=== PATIENT | female | born 1980 | race Caucasian/White ===

== ENCOUNTER 2018-02-11 09:09 | Emergency (ER) | payer BC, MEDICAID ==
[~2018-02-11] VITALS: Ht 175.3 cm; Wt 104.3 kg
[2018-02-11 09:16] VITALS: BP_SYST 143
[2018-02-11] MEDS ORDERED: NACL 0.9% 1,000 ML IV ONE (09:24)
[2018-02-11] MEDS ORDERED: ONDANSETRON HCL 4 MG/2 ML VIAL IVP ONE (09:30)
[2018-02-11 09:56] LABS: EOSINOPHILS # (AUTO) 0.1 K/uL (0.0-0.4); MEAN CORPUSCULAR HEMOGLOBIN 29 pg (27-31); MONOCYTES # (AUTO) 0.2 K/uL (0.0-1.0); NEUTROPHILS # (AUTO) 4.1 K/uL (1.8-7.7); RED CELL DISTRIBUTION WIDTH 12.5 % (9.0-15.0); WHITE BLOOD COUNT (AUTO) 5.5 K/uL (4.8-10.8)
[2018-02-11 10:04] LABS: ANION GAP 7 (5-15); BASOPHILS % (AUTO) 0.7 % (0.0-2.0); CHLORIDE 106 mmol/L (98-107); CREATININE 0.61 mg/dL (0.55-1.30); EOSINOPHILS % (AUTO) 2.7 % (0.0-4.0); GLUCOSE 114 mg/dL (70-99); HEMATOCRIT 41.7 % (36-48); LYMPHOCYTES # (AUTO) 1.1 K/uL (1.0-5.5); LYMPHOCYTES % (AUTO) 19.2 % (20.5-51.5); MEAN CORPUSCULAR HGB CONC 34 % (32-36); MEAN CORPUSCULAR VOLUME 86 fL (79.0-98.0); MONOCYTES % (AUTO) 4.1 % (1.7-9.3); NEUTROPHILS % (AUTO) 73.3 % (40.0-70.0); PLATELET COUNT (AUTO) 284 K/uL (130-430); POTASSIUM 3.6 mmol/L (3.5-5.1); RED BLOOD CELL COUNT(AUTO) 4.87 MIL/uL (4.2-6.2); SODIUM SERUM 143 mmol/L (136-145); UREA NITROGEN, BLOOD 11 mg/dL (8-21)
[2018-02-11 10:06] LABS: GFR AFRICAN AMERICAN 141 mL/min (>90)
[2018-02-11 10:13] LABS: ALANINE AMINOTRANSFERASE 28 U/L (12-78); ALBUMIN 3.9 g/dL (3.4-4.8); ASPARTATE AMINOTRANSFERASE 17 U/L (10-37); LIPASE 145 U/L (73-393); TOTAL BILIRUBIN 0.3 mg/dL (0.0-1.0)
[2018-02-11] MEDS ORDERED: KETOROLAC TROMETHAMINE 30 MG VIAL IVP ONE (10:30)
[2018-02-11 10:42] LABS: BARBITURATE, URINE NEGATIVE (NEG <=200); BENZODIAZEPINE, URINE NEGATIVE (NEG <=150); CANNABINOID, URINE NEGATIVE (NEG <=50); COCAINE, URINE NEGATIVE (NEG <=150); METHAMPHETAMINES SCREEN,URINE NEGATIVE (NEG <=500); OPIATE, URINE NEGATIVE (NEG <=100); PHENCYCLIDINE SCREEN,URINE NEGATIVE (NEG <=25); UR TRICYCLIC ANTIDEPRESSANTS NEGATIVE (NEG <=300); URINE AMPHETAMINE NEGATIVE (NEG <=500); URINE METHADONE NEGATIVE (NEG <=200); URINE OXYCODONE SCREEN NEGATIVE (NEG <=100); URINE PROPOXYPHENE SCREEN NEGATIVE (NEG <=300)
[2018-02-11 13:57] VITALS: BP_SYST 135
== END 2018-02-11 13:57 | disposition home or self-care (01) ==
LOC: SED 09:09
DX: T62.8X1A Toxic effect of other specified noxious substances eaten as food, accidental (unintentional), initial encounter (principal); K52.1 Toxic gastroenteritis and colitis; F41.9 Anxiety disorder, unspecified; R03.0 Elevated blood-pressure reading, without diagnosis of hypertension; Z88.6 Allergy status to analgesic agent; Z88.5 Allergy status to narcotic agent; Z90.710 Acquired absence of both cervix and uterus; Y92.89 Other specified places as the place of occurrence of the external cause
CPT/HCPCS: 36415; 71045; 80053; 80307; 83690; 84484; 85025; 93005; 96361; 96374; 99285; J2405; J7030; J1885

== ENCOUNTER 2018-05-12 11:42 | Emergency (ER) | payer MEDICAID ==
[~2018-05-12] VITALS: Ht 170.2 cm; Wt 104.3 kg
[2018-05-12 11:45] VITALS: BP_SYST 155
--- NOTE | 2018-05-12 11:50 | NUR ---
Patient to ER bed 6 to gown for evaluation. Side rails up.
--- NOTE | 2018-05-12 11:55 | NUR ---
Pt bib 63 c/o SOB while at restuarant that worsened since yesterday.
[2018-05-12] MEDS ORDERED: NACL 0.9% 1,000 ML IV ONE (12:45)
[2018-05-12] MEDS ORDERED: ONDANSETRON HCL 4 MG/2 ML VIAL IVP ONE (12:45)
--- NOTE | 2018-05-12 12:45 | NUR ---
Pt medicated tolerated well.Continuing to monitor/.
[2018-05-12 13:06] LABS: BASOPHILS % (AUTO) 0.4 % (0.0-2.0); EOSINOPHILS % (AUTO) 0.1 % (0.0-4.0); HEMATOCRIT 43.2 % (36-48); HEMOGLOBIN 13.9 g/dL (12.0-16.0); LYMPHOCYTES # (AUTO) 0.8 K/uL (1.0-5.5); LYMPHOCYTES % (AUTO) 12.8 % (20.5-51.5); MEAN CORPUSCULAR HEMOGLOBIN 28 pg (27-31); MEAN CORPUSCULAR HGB CONC 32 % (32-36); MEAN CORPUSCULAR VOLUME 86 fL (79.0-98.0); MONOCYTES # (AUTO) 0.2 K/uL (0.0-1.0); MONOCYTES % (AUTO) 2.8 % (1.7-9.3); NEUTROPHILS # (AUTO) 5.5 K/uL (1.8-7.7); NEUTROPHILS % (AUTO) 83.9 % (40.0-70.0); PLATELET COUNT (AUTO) 348 K/uL (130-430); RED BLOOD CELL COUNT(AUTO) 5.01 MIL/uL (4.2-6.2); RED CELL DISTRIBUTION WIDTH 12.9 % (9.0-15.0); WHITE BLOOD COUNT (AUTO) 6.5 K/uL (4.8-10.8)
--- NOTE | 2018-05-12 13:15 | NUR ---
Pt sleeping easily aroused. no acute distress noted.
[2018-05-12 13:20] LABS: CALCIUM 9.5 mg/dL (8.4-11.0); CREATININE 0.54 mg/dL (0.55-1.30); POTASSIUM 3.9 mmol/L (3.5-5.1)
[2018-05-12 13:26] LABS: ALBUMIN 3.9 g/dL (3.4-4.8); TOTAL BILIRUBIN 0.5 mg/dL (0.0-1.0)
--- NOTE | 2018-05-12 14:30 | NUR ---
IVF infusing, pt needs continuous reminders to keep arm straight.
[2018-05-12] MEDS ORDERED: KETOROLAC TROMETHAMINE 30 MG VIAL IVP ONE (16:00)
--- NOTE | 2018-05-12 16:00 | NUR ---
Pt mediated for pain.
[2018-05-12 16:57] VITALS: BP_SYST 148
--- NOTE | 2018-05-12 16:57 | NUR ---
Patient given written and verbal discharge instructions and verbalizes understanding. ER MD discussed with patient the results and treatment provided. Patient in stable condition. ID arm band removed. IV catheter removed intact and dressing applied, no active bleeding. Rx of zofran,motrin given. Patient educated on pain management and to follow up with PMD. Pain Scale 2. Opportunity for questions provided and answered. Medication side effect fact sheet provided.
== END 2018-05-12 16:57 | disposition home or self-care (01) ==
LOC: SED 11:42
DX: R07.89 Other chest pain (principal); R06.02 Shortness of breath; R11.2 Nausea with vomiting, unspecified; R03.0 Elevated blood-pressure reading, without diagnosis of hypertension; Z88.5 Allergy status to narcotic agent; Z88.6 Allergy status to analgesic agent; Z86.79 Personal history of other diseases of the circulatory system; Z90.710 Acquired absence of both cervix and uterus
CPT/HCPCS: 36415; 80053; 85025; 93005; 96375; 96374; 99285; J1885; J2405; J7030; 99284

== ENCOUNTER 2019-01-25 22:26 | Emergency (ER) | payer MEDICAID ==
[~2019-01-25] VITALS: Ht 154.9 cm; Wt 113.4 kg
[2019-01-25 22:26] VITALS: BP_SYST 130
--- NOTE | 2019-01-25 22:26 | NUR ---
Pt BIB ALS and BLS, no available beds, placed to ER hallway. Pt on stretcher with BLS present. Pt in stable condition, NAD.
--- NOTE | 2019-01-25 22:45 | NUR ---
Pt placed to ER bed 07, to color sprayer. Pt report given to JENY Fernandez.
--- NOTE | 2019-01-25 22:47 | NUR ---
# 20 gauge angiocath placed to RAC. Use of asceptic technique. Opsite placed over site. Blood return noted. Blood for lab drawn from site. Flushed with 10 cc of normal saline. No evidence of infiltration noted. Patient tolerated well.
--- NOTE | 2019-01-25 22:48 | NUR ---
Pt BIBA w/ c/o of chest pain x3 days. Pt states, she feels sternal chest pain that increases with pain upon palpation. Pt states pain is 4/10. No s/s of distress noted. Pt has Hx of hypertension and hysterectomy. Pt smells of ETOH and states she has had 2 margaritas prior to coming in. Will continue to monitor.
--- NOTE | 2019-01-25 22:55 | NUR ---
Dr. Javed in at bedside
[2019-01-25 22:56] LABS: BASOPHILS % (AUTO) 0.7 % (0.0-2.0); EOSINOPHILS % (AUTO) 0.7 % (0.0-4.0); HEMATOCRIT 44.4 % (36-48); HEMOGLOBIN 15.2 g/dL (12.0-16.0); LYMPHOCYTES # (AUTO) 1.5 K/uL (1.0-5.5); MEAN CORPUSCULAR HEMOGLOBIN 30 pg (27-31); MEAN CORPUSCULAR HGB CONC 34 % (32-36); MEAN CORPUSCULAR VOLUME 87 fL (79.0-98.0); MONOCYTES # (AUTO) 0.2 K/uL (0.0-1.0); MONOCYTES % (AUTO) 3.3 % (1.7-9.3); NEUTROPHILS # (AUTO) 5.1 K/uL (1.8-7.7); NEUTROPHILS % (AUTO) 73.3 % (40.0-70.0); PLATELET COUNT (AUTO) 303 K/uL (130-430); RED CELL DISTRIBUTION WIDTH 13.7 % (9.0-15.0)
[2019-01-25 23:11] LABS: ANION GAP 16 (5-15); CALCIUM 8.8 mg/dL (8.4-11.0); CHLORIDE 104 mmol/L (98-107); CREATININE 0.87 mg/dL (0.55-1.30); GLUCOSE 108 mg/dL (70-99); POTASSIUM 3.3 mmol/L (3.5-5.1); SODIUM SERUM 144 mmol/L (136-145); UREA NITROGEN, BLOOD 12 mg/dL (8-21)
[2019-01-25] MEDS ORDERED: KETOROLAC TROMETHAMINE 60 MG/2 ML VIAL IM ONE (23:15)
[2019-01-25] MEDS ORDERED: NACL 0.9% 1,000 ML IV ONE (23:15)
[2019-01-25] MEDS ORDERED: METOCLOPRAMIDE HCL 10 MG/2 ML VIAL IVP ONE (23:15)
[2019-01-25 23:21] LABS: ALANINE AMINOTRANSFERASE 32 U/L (12-78); ALBUMIN 3.8 g/dL (3.4-4.8); ALCOHOL, BLOOD 181 mg/dL (<10); ASPARTATE AMINOTRANSFERASE 27 U/L (10-37); TOTAL BILIRUBIN 0.3 mg/dL (0.0-1.0)
[2019-01-25 23:22] LABS: GFR AFRICAN AMERICAN 93 mL/min (>90)
[2019-01-26] MEDS ORDERED: DIPHENHYDRAMINE INJ 50 MG/ML VIAL IVP ONE
[2019-01-26 00:14] LABS: BILIRUBIN,URINE NEGATIVE (NEGATIVE); BLOOD, URINE NEGATIVE (NEGATIVE); CLARITY/URINE CLEAR (CLEAR); COLOR,URINE YELLOW (YELLOW); GLUCOSE,URINE NEGATIVE (NEGATIVE); KETONES,URINE TRACE (NEGATIVE); LEUKOCYTE ESTERASE ,URINE 1+ (NEGATIVE); NITRITE, URINE NEGATIVE (NEGATIVE); PROTEIN URINE NEGATIVE (NEGATIVE); UROBILINOGEN,URINE 0.2 (0.2-1.0)
[2019-01-26 00:21] LABS: BACTERIA,URINE FEW /HPF (None Seen); RBC,URINE 0-3 /HPF (0-3)
[2019-01-26 00:22] LABS: HCG,QUAL RESULT NEGATIVE (NEGATIVE)
[2019-01-26 00:24] LABS: BARBITURATE, URINE NEGATIVE (NEG <=200); BENZODIAZEPINE, URINE NEGATIVE (NEG <=150); CANNABINOID, URINE NEGATIVE (NEG <=50); COCAINE, URINE NEGATIVE (NEG <=150); METHAMPHETAMINES SCREEN,URINE NEGATIVE (NEG <=500); OPIATE, URINE NEGATIVE (NEG <=100); PHENCYCLIDINE SCREEN,URINE NEGATIVE (NEG <=25); UR TRICYCLIC ANTIDEPRESSANTS NEGATIVE (NEG <=300); URINE AMPHETAMINE NEGATIVE (NEG <=500); URINE METHADONE NEGATIVE (NEG <=200); URINE OXYCODONE SCREEN NEGATIVE (NEG <=100); URINE PROPOXYPHENE SCREEN NEGATIVE (NEG <=300)
[2019-01-26 01:40] VITALS: BP_SYST 131
--- NOTE | 2019-01-26 01:40 | NUR ---
Patient given written and verbal discharge instructions and verbalizes understanding. ER MD discussed with patient the results and treatment provided. Patient in stable condition. ID arm band removed. IV catheter removed intact and dressing applied, no active bleeding. Rx of Prilosec and Cipro given. Patient educated on pain management and to follow up with PMD. Pain Scale 0/10. Opportunity for questions provided and answered. Medication side effect fact sheet provided.
== END 2019-01-26 01:40 | disposition home or self-care (01) ==
LOC: SED 22:26
DX: F10.129 Alcohol abuse with intoxication, unspecified (principal); N39.0 Urinary tract infection, site not specified; R10.13 Epigastric pain; Z86.79 Personal history of other diseases of the circulatory system; Z88.5 Allergy status to narcotic agent; Z88.6 Allergy status to analgesic agent; Y90.6 Blood alcohol level of 120-199 mg/100 ml
CPT/HCPCS: 36415; 80053; 80307; 81000; 83690; 84484; 84703; 85025; 87086; 96374; 96375; 99283; G0482; J1200; J1885; J2765; J7030

== ENCOUNTER 2019-04-10 20:25 | Emergency (ER) | payer MEDICAID ==
[~2019-04-10] VITALS: Ht 152.4 cm; Wt 81.6 kg
[2019-04-10 20:30] VITALS: BP_SYST 170
--- NOTE | 2019-04-10 20:30 | NUR ---
Patient triaged and placed in er [facility]. VSS and patient appears in no acute distress at this time. Accompanied by , awaiting available bed, and MD notified of need for MSE.
--- NOTE | 2019-04-10 20:50 | NUR ---
Patient to ER bed 3 to gown for evaluation. Side rails up. Report given to michael FERMIN.
--- NOTE | 2019-04-10 20:55 | NUR ---
Patient BIB BLS transport from home with c/o vomiting since tonight. patient state she feels weak and is unable to walk. patient lungs are CTA. patient has bilateral strangth to both lower and upper extremities. patient denies feeling sick at this time. patient denies chest pain, TAYLOR, fall or any other complaint or injury.
--- NOTE | 2019-04-10 21:00 | NUR ---
ER at bedside examining patient.
--- NOTE | 2019-04-10 21:00 | NUR ---
Urine specimen collected and analyzed in ER. patient walked to the bathroom with a stable gait. patient states she feels like she is getting better.
[2019-04-10] MEDS ORDERED: NACL 0.9% 1,000 ML IV ONE ×2 (21:11)
--- NOTE | 2019-04-10 21:20 | NUR ---
patient sent to CT in stable condition
[2019-04-10 21:25] LABS: BILIRUBIN,URINE NEGATIVE (NEGATIVE); BLOOD, URINE NEGATIVE (NEGATIVE); CLARITY/URINE CLEAR (CLEAR); COLOR,URINE YELLOW (YELLOW); GLUCOSE,URINE NEGATIVE (NEGATIVE); KETONES,URINE NEGATIVE (NEGATIVE); LEUKOCYTE ESTERASE ,URINE 2+ (NEGATIVE); NITRITE, URINE NEGATIVE (NEGATIVE); PH,URINE 7.5 (5.0-8.0); PROTEIN URINE NEGATIVE (NEGATIVE); UROBILINOGEN,URINE 0.2 (0.2-1.0)
[2019-04-10 21:34] LABS: BACTERIA,URINE FEW /HPF (None Seen); MUCUS,URINE None Seen /LPF (None Seen); RBC,URINE 0-3 /HPF (0-3)
--- NOTE | 2019-04-10 21:35 | NUR ---
patient returned from Ct in stable
[2019-04-10 21:44] LABS: BASOPHILS % (AUTO) 0.3 % (0.0-2.0); EOSINOPHILS % (AUTO) 0.4 % (0.0-4.0); HEMATOCRIT 39.4 % (36-48); HEMOGLOBIN 13.3 g/dL (12.0-16.0); LYMPHOCYTES # (AUTO) 1.7 K/uL (1.0-5.5); LYMPHOCYTES % (AUTO) 19.1 % (20.5-51.5); MEAN CORPUSCULAR HEMOGLOBIN 30 pg (27-31); MEAN CORPUSCULAR HGB CONC 34 % (32-36); MEAN CORPUSCULAR VOLUME 89 fL (79.0-98.0); MONOCYTES # (AUTO) 0.5 K/uL (0.0-1.0); NEUTROPHILS # (AUTO) 6.8 K/uL (1.8-7.7); NEUTROPHILS % (AUTO) 75.2 % (40.0-70.0); PLATELET COUNT (AUTO) 266 K/uL (130-430); RED BLOOD CELL COUNT(AUTO) 4.45 MIL/uL (4.2-6.2); WHITE BLOOD COUNT (AUTO) 9.1 K/uL (4.8-10.8)
[2019-04-10 21:47] LABS: CREATININE 0.72 mg/dL (0.55-1.30); POTASSIUM 3.1 mmol/L (3.5-5.1)
[2019-04-10 21:52] LABS: ALBUMIN 3.9 g/dL (3.4-4.8); TOTAL BILIRUBIN 0.4 mg/dL (0.0-1.0)
[2019-04-10] MEDS ORDERED: POTASSIUM CHLORIDE 20 MEQ/PKT PACKET PO ONE (23:15)
[2019-04-10 23:38] VITALS: BP_SYST 135
--- NOTE | 2019-04-10 23:38 | NUR ---
Patient given written and verbal discharge instructions and verbalizes understanding. ER MD Dr. Giles discussed with patient the results and treatment provided. Patient in stable condition. ID arm band removed. IV catheter removed intact and dressing applied, no active bleeding. Rx of keflex given. Patient educated on pain management and to follow up with PMD. Pain Scale 0/10. Opportunity for questions provided and answered. Medication side effect fact sheet provided.
== END 2019-04-10 23:38 | disposition home or self-care (01) ==
LOC: SED 20:25
DX: E87.6 Hypokalemia (principal); N39.0 Urinary tract infection, site not specified; Z86.79 Personal history of other diseases of the circulatory system; Z88.5 Allergy status to narcotic agent; Z88.6 Allergy status to analgesic agent
CPT/HCPCS: 36415; 70450; 71045; 80053; 81000; 82550; 84484; 85025; 87086; 93005; 96360; 99284; J7030

== ENCOUNTER 2019-07-28 15:33 | Emergency (ER) | payer MEDICAID ==
[~2019-07-28] VITALS: Ht 152.4 cm; Wt 81.6 kg
[2019-07-28 15:41] VITALS: BP_SYST 141
--- NOTE | 2019-07-28 15:47 | NUR ---
ambulated to bed 4
--- NOTE | 2019-07-28 15:49 | NUR ---
Patient arrived in the ED c/o cough, chest congestion, wheezing, and sore throat that started last Saturday - Patient is taking Mucinex; no relief per patient. Denied any fevers or chills. Patient is alert and oriented x4, respirations even and unlabored, speaking in full sentences, ambulating with a steady gait. VSS, pain level 0/10. Denied any chest pain or SOB. Informed of wait time. Instructed to notify ED staff for any changes in condition or worsening of symptoms. Patient verbalized understanding.
--- NOTE | 2019-07-28 15:51 | NUR ---
ER JACKIE Trammell at bedside examining patient.
--- NOTE | 2019-07-28 17:00 | NUR ---
Patient given written and verbal discharge instructions and verbalizes understanding. ER MD discussed with patient the results and treatment provided. Patient in stable condition. ID arm band removed. Rx of Zpak, Albuterol and Ibuprofen given. Patient educated on pain management and to follow up with PMD. Pain Scale 0/10. Opportunity for questions provided and answered. Medication side effect fact sheet provided.
[2019-07-28 17:02] VITALS: BP_SYST 141
== END 2019-07-28 17:00 | disposition home or self-care (01) ==
LOC: SED 15:33
DX: R05 Cough (principal); R03.0 Elevated blood-pressure reading, without diagnosis of hypertension; E07.9 Disorder of thyroid, unspecified; Z85.9 Personal history of malignant neoplasm, unspecified; Z86.79 Personal history of other diseases of the circulatory system; Z90.710 Acquired absence of both cervix and uterus; Z88.6 Allergy status to analgesic agent
CPT/HCPCS: 99283

== ENCOUNTER 2020-01-19 00:56 | Emergency (ER) | payer MEDICAID ==
[~2020-01-19] VITALS: Ht 152.4 cm; Wt 90.7 kg
[2020-01-19 01:30] VITALS: BP_SYST 144
--- NOTE | 2020-01-19 01:45 | NUR ---
Patient to ER bed 5 to gown for evaluation. Side rails up.
--- NOTE | 2020-01-19 01:51 | NUR ---
PT BIB BLS C/O OF HIGH BLOOD PRESSURE, 200+/100+. PT REPORTS FEELING OFF-BALANCE/DIZZY FOR THREE WEEKS. PT DENIES HEADACHE, BLURRY VISION. PT DENIES HX OF HIGH BLOOD PRESSURE. PT DENIES PAIN. PT A&OX4 WITHOUT ANY SIGNS OF ACUTE DISTRESS. WILL CONTINUE TO MONITOR.
--- NOTE | 2020-01-19 02:15 | NUR ---
ER at bedside examining patient.
--- NOTE | 2020-01-19 02:27 | NUR ---
PT AMBULATED TO RESTROOM WITH STEADY GAIT.
--- NOTE | 2020-01-19 03:10 | NUR ---
LAB AT BEDSIDE DRAWING BLOOD.
[2020-01-19 03:32] LABS: BASOPHILS % (AUTO) 0.3 % (0.0-2.0); EOSINOPHILS % (AUTO) 0.6 % (0.0-4.0); HEMOGLOBIN 13.3 g/dL (12.0-16.0); LYMPHOCYTES # (AUTO) 1.6 K/uL (1.0-5.5); LYMPHOCYTES % (AUTO) 22.6 % (20.5-51.5); MEAN CORPUSCULAR HEMOGLOBIN 30 pg (27-31); MEAN CORPUSCULAR HGB CONC 34 % (32-36); MEAN CORPUSCULAR VOLUME 87 fL (79.0-98.0); MONOCYTES # (AUTO) 0.5 K/uL (0.0-1.0); MONOCYTES % (AUTO) 6.4 % (1.7-9.3); NEUTROPHILS % (AUTO) 70.1 % (40.0-70.0); PLATELET COUNT (AUTO) 266 K/uL (130-430); RED BLOOD CELL COUNT(AUTO) 4.48 MIL/uL (4.2-6.2); RED CELL DISTRIBUTION WIDTH 13.2 % (9.0-15.0); WHITE BLOOD COUNT (AUTO) 7.1 K/uL (4.8-10.8)
[2020-01-19 03:36] LABS: CALCIUM 8.4 mg/dL (8.4-11.0); CREATININE 0.64 mg/dL (0.55-1.30); POTASSIUM 3.7 mmol/L (3.5-5.1)
[2020-01-19 03:42] LABS: ALBUMIN 3.8 g/dL (3.4-4.8); TOTAL BILIRUBIN 0.2 mg/dL (0.0-1.0)
--- NOTE | 2020-01-19 04:23 | NUR ---
PT RESTING CALMLY IN BED WITH NO SIGNS OF ACUTE DISTRESS. VSS.
[2020-01-19] MEDS ORDERED: LISINOPRIL 10 MG TABLET (PRINIVIL) PO ONE (04:30)
--- NOTE | 2020-01-19 05:20 | NUR ---
PT VSS. RESTING IN BED. PT CALLING FOR A RIDE HOME.
[2020-01-19 06:34] VITALS: BP_SYST 161
--- NOTE | 2020-01-19 06:34 | NUR ---
Patient given written and verbal discharge instructions and verbalizes understanding. ER MD discussed with patient the results and treatment provided. Patient in stable condition. ID arm band removed. Rx of LISINOPRIL given. Patient educated on pain management and to follow up with PMD. Pain Scale 0/10. Opportunity for questions provided and answered. Medication side effect fact sheet provided.
== END 2020-01-19 06:34 | disposition home or self-care (01) ==
LOC: SED 00:56
DX: I10 Essential (primary) hypertension (principal); R42 Dizziness and giddiness; Z88.5 Allergy status to narcotic agent; Z88.6 Allergy status to analgesic agent
CPT/HCPCS: 36415; 71045; 80053; 84484; 85025; 93005; 99285

== ENCOUNTER 2021-12-16 10:22 | Emergency (ER) | payer MEDICAID ==
[~2021-12-16] VITALS: Ht 154.9 cm; Wt 81.6 kg
[2021-12-16 10:22] VITALS: BP_SYST 141
--- NOTE | 2021-12-16 10:24 | NUR ---
Patient to ER bed 4 for evaluation. Side rails up. Report given to Nilesh FERMIN.
--- NOTE | 2021-12-16 10:26 | NUR ---
ER at bedside examining patient.
[2021-12-16] MEDS ORDERED: ONDANSETRON 4 MG ODT TAB PO ONE (10:30)
[2021-12-16] MEDS ORDERED: LORazepam 1 MG TABLET PO ONE (10:30)
--- NOTE | 2021-12-16 10:30 | NUR ---
Pt BIBA with c/o lower back and abdominal pain rated 10/10. Pt reported vomitting and says she feels like she has food posioning. Patient following commands, ambulatory, and A&O x 4. Pt being difficult with staff. Safety precautions are in place and pt on cardiac care nurse.
--- NOTE | 2021-12-16 10:56 | NUR ---
Lab drawing at bedside.
[2021-12-16 11:09] LABS: BASOPHILS % (AUTO) 0.3 % (0.0-2.0); EOSINOPHILS % (AUTO) 0.5 % (0.0-4.0); HEMATOCRIT 42.1 % (36-48); HEMOGLOBIN 14.3 g/dL (12.0-16.0); LYMPHOCYTES # (AUTO) 0.6 K/uL (1.0-5.5); LYMPHOCYTES % (AUTO) 7.3 % (20.5-51.5); MEAN CORPUSCULAR HEMOGLOBIN 29 pg (27-31); MEAN CORPUSCULAR HGB CONC 34 % (32-36); MEAN CORPUSCULAR VOLUME 84 fL (79.0-98.0); MONOCYTES # (AUTO) 0.7 K/uL (0.0-1.0); MONOCYTES % (AUTO) 8.5 % (1.7-9.3); NEUTROPHILS # (AUTO) 6.6 K/uL (1.8-7.7); NEUTROPHILS % (AUTO) 83.4 % (40.0-70.0); PLATELET COUNT (AUTO) 253 K/uL (130-430); RED BLOOD CELL COUNT(AUTO) 5.02 MIL/uL (4.2-6.2); RED CELL DISTRIBUTION WIDTH 13.6 % (9.0-15.0); WHITE BLOOD COUNT (AUTO) 7.9 K/uL (4.8-10.8)
[2021-12-16] MEDS ORDERED: LORazepam 2 MG/ML VIAL IVP ONE (11:15)
[2021-12-16] MEDS ORDERED: ONDANSETRON HCL 4 MG/2 ML VIAL IVP ONE (11:15)
[2021-12-16] MEDS ORDERED: NACL 0.9% 1,000 ML IV ONE (11:15)
[2021-12-16 11:17] LABS: ANION GAP 12 (5-15); CALCIUM 8.8 mg/dL (8.4-11.0); CHLORIDE 98 mmol/L (98-107); GFR AFRICAN AMERICAN 88 mL/min (>90); GLUCOSE 106 mg/dL (70-99); POTASSIUM 3.6 mmol/L (3.5-5.1); SODIUM SERUM 134 mmol/L (136-145); UREA NITROGEN, BLOOD 9 mg/dL (8-21)
[2021-12-16 11:19] LABS: C-REACTIVE PROTEIN QUANT < 0.2 mg/dL (0-0.5)
[2021-12-16 11:23] LABS: ALANINE AMINOTRANSFERASE 39 U/L (12-78); ALBUMIN 3.8 g/dL (3.4-4.8); AMYLASE 66 U/L (0-100); ASPARTATE AMINOTRANSFERASE 20 U/L (10-37); LIPASE 104 U/L (73-393); TOTAL BILIRUBIN 0.4 mg/dL (0.0-1.0)
[2021-12-16 11:25] LABS: BILIRUBIN,URINE NEGATIVE (NEGATIVE); BLOOD, URINE NEGATIVE (NEGATIVE); CLARITY/URINE CLEAR (CLEAR); COLOR,URINE YELLOW (YELLOW); GLUCOSE,URINE NEGATIVE (NEGATIVE); KETONES,URINE NEGATIVE (NEGATIVE); LEUKOCYTE ESTERASE ,URINE NEGATIVE (NEGATIVE); NITRITE, URINE NEGATIVE (NEGATIVE); PH,URINE 8.5 (5.0-8.0); PROTEIN URINE NEGATIVE (NEGATIVE); UROBILINOGEN,URINE 0.2 (0.2-1.0)
[2021-12-16 11:45] LABS: BARBITURATE, URINE NEGATIVE (NEG <=200); BENZODIAZEPINE, URINE NEGATIVE (NEG <=150); CANNABINOID, URINE NEGATIVE (NEG <=50); COCAINE, URINE NEGATIVE (NEG <=150); METHAMPHETAMINES SCREEN,URINE NEGATIVE (NEG <=500); OPIATE, URINE NEGATIVE (NEG <=100); PHENCYCLIDINE SCREEN,URINE NEGATIVE (NEG <=25); UR TRICYCLIC ANTIDEPRESSANTS NEGATIVE (NEG <=300); URINE AMPHETAMINE NEGATIVE (NEG <=500); URINE METHADONE NEGATIVE (NEG <=200); URINE OXYCODONE SCREEN NEGATIVE (NEG <=100); URINE PROPOXYPHENE SCREEN NEGATIVE (NEG <=300)
[2021-12-16 12:15] LABS: HCG,QUAL RESULT NEGATIVE (NEGATIVE)
--- NOTE | 2021-12-16 12:20 | NUR ---
Pt moved to bed 1 to observe more closely due to fall risk after being medicated with Ativan. Placed on seo associate. Curtain open; to monitor pt closely.
--- NOTE | 2021-12-16 12:40 | NUR ---
Received pt from previous attending RN. Pt uncooperative and trying to get out of bed. Pt placed closer to nursing station for supervision and fall prevention.
[2021-12-16] MEDS ORDERED: ONDA-8 TL (13:55)
[2021-12-16] MEDS ORDERED: IBUP-1969 PO (13:55)
[2021-12-16] MEDS ORDERED: KETOROLAC TROMETHAMINE 30 MG VIAL IVP ONE (14:00)
--- NOTE | 2021-12-16 14:00 | NUR ---
Patient given written and verbal discharge instructions and verbalizes understanding. ER MD discussed with patient the results and treatment provided. Patient in stable condition. ID arm band removed. IV catheter removed intact and dressing applied, no active bleeding. Rx of ibuprofen and zofran given. Patient educated on pain management and to follow up with PMD. Pain Scale . Opportunity for questions provided and answered. Medication side effect fact sheet provided. Pt D/C in no acute distress AOx4 GCS 15 transported out of ED via wheelchair to be picked up by daughter
[2021-12-16 14:04] VITALS: BP_SYST 129
--- NOTE | 2022-01-05 11:42 | NUR ---
addendum: NACL stop time 123 Addendum: 01/05/22 at 1146 by JOSE Nacl start time 113 stop time 123
== END 2021-12-16 14:00 | disposition home or self-care (01) ==
LOC: SED 10:22
DX: R10.13 Epigastric pain (principal); E07.9 Disorder of thyroid, unspecified; R10.84 Generalized abdominal pain; R11.2 Nausea with vomiting, unspecified; Z88.5 Allergy status to narcotic agent; Z88.6 Allergy status to analgesic agent
CPT/HCPCS: 36415; 74176; 76376; 80053; 80307; 81003; 81025; 82150; 83605; 83690; 84703; 85025; 86140; 96361; 96374; 96375; 99284; J2060; J2405; J7030; Q0162